=== PATIENT | female | born 1945 | race Caucasian/White ===

== ENCOUNTER 2019-03-07 10:36 | Day surgery (SDC) | payer MEDICARE, OTHER ==
[~2019-03-07] VITALS: Ht 167.6 cm; Wt 69.7 kg
[~2019-03-07 10:36] MED LIST: ALPR.5 PO; Bactrim Ds Tab1 EACH PO; ESCI20 PO; HYDACE5 PO; Keflex500 MG PO; OXYACE5T PO; TRAZ100 PO
[2019-03-07] MEDS ORDERED: Zantac150 MG (12:17)
--- NOTE | 2019-03-07 13:24 | NUR ---
03/07/19 1324 Alka Welch PT. WITH SATS DOWN TO 87% ON 3L/NC, PT. COUGHING, O2 UP TO 5L/NC WITH SATS UP TO 98%. JAW THRUST/CHIN LIFT PERFORMED.
== END 2019-03-07 13:35 | disposition home or self-care (01) ==
LOC: ORSCSDS 10:36
DX: K30 Functional dyspepsia (principal); K21.0 Gastro-esophageal reflux disease with esophagitis; R11.0 Nausea; K29.80 Duodenitis without bleeding; I10 Essential (primary) hypertension; Z79.899 Other long term (current) drug therapy
CPT/HCPCS: 88305; 88342; J2250; J2704; J7120

== ENCOUNTER → 2020-04-04 | Outpatient (CLI) | payer MEDICARE ==
[~2020-04-04] MED LIST changes: +Zantac150 MG
== END | disposition home or self-care (01) ==
LOC: PLD 08:35 → LAB SHORT 08:35
DX: D17.21 Benign lipomatous neoplasm of skin and subcutaneous tissue of right arm (principal)
CPT/HCPCS: 88304

== ENCOUNTER → 2020-04-17 | Outpatient (CLI) | payer MEDICARE | LOC: LAB 16:12 → LAB SHORT 16:12 | DX: L08.0 Pyoderma (principal) | CPT/HCPCS: 87070; 87077; 87147; 87186; 87205 ==

== ENCOUNTER 2024-03-08 10:33 | Day surgery (SDC) | payer MEDICARE, OTHER ==
[~2024-03-08] VITALS: Ht 167.6 cm; Wt 68.4 kg
[~2024-03-08 10:33] MED LIST changes: +Balanced Salt Epinephrine Irrigation Solution 500 mL IR SCH; +Lidocaine HCl/Pf 1% 5 ML VIAL XX SCH; +Moxifloxacin HCL 0.5 MG/0.1 ML 0.4MLSYR RIGHTEYE SCH; +NS 500 ML IV ONE; +PHENYLEPHRINE\\TROPICAMIDE\\TETRACAINE OPHTHALMIC DILATING SOLN RIGHTEYE PRN; +Povidone-Iodine 450 DROP/30 ML Solution RIGHTEYE SCH
[2024-03-08] MEDS ORDERED: NS 500 ML IV ONE (11:26)
--- NOTE | 2024-03-08 11:26 | NUR ---
03/08/24 1126 Patti Abraham AT [address] [id number]
[2024-03-08] MEDS ORDERED: Midazolam HCl 1MG / ML 2ML Vial ONE (11:34)
[2024-03-08] MEDS ORDERED: FentaNYL Citrate 50 MCG/ML 2 ML Injection ONE (11:34)
[2024-03-08] MEDS ORDERED: IBUP800 PO (11:34)
[2024-03-08 13:06] VITALS: BP 164/90
== END 2024-03-08 13:21 | disposition home or self-care (01) ==
LOC: ORSCSDS 10:33
PROVIDERS: Student in an Organized Health Care Education/Training Program
PROC: 08RJ3JZ Replacement of Right Lens with Synthetic Substitute, Percutaneous Approach (ICD-10-PCS; principal; 2024-03-08 12:30)
DX: H25.813 Combined forms of age-related cataract, bilateral (principal); I10 Essential (primary) hypertension; K21.9 Gastro-esophageal reflux disease without esophagitis
CPT/HCPCS: J2250; J3010; J7040; V2632

== ENCOUNTER 2024-03-22 10:46 | Day surgery (SDC) | payer MEDICARE, OTHER ==
[~2024-03-22] VITALS: Ht 167.6 cm; Wt 68.5 kg
[~2024-03-22 10:46] MED LIST changes: +IBUP800 PO; +Moxifloxacin HCL 0.5 MG/0.1 ML 0.4MLSYR LEFTEYE SCH; -Moxifloxacin HCL 0.5 MG/0.1 ML 0.4MLSYR RIGHTEYE SCH; +PHENYLEPHRINE\\TROPICAMIDE\\TETRACAINE OPHTHALMIC DILATING SOLN LEFTEYE PRN; -PHENYLEPHRINE\\TROPICAMIDE\\TETRACAINE OPHTHALMIC DILATING SOLN RIGHTEYE PRN; +Povidone-Iodine 450 DROP/30 ML Solution LEFTEYE SCH; -Povidone-Iodine 450 DROP/30 ML Solution RIGHTEYE SCH
[2024-03-22] MEDS ORDERED: NS 1,000 ML IV ONE (12:00)
[2024-03-22] MEDS ORDERED: Midazolam HCl 1MG / ML 2ML Vial ONE (12:17)
[2024-03-22] MEDS ORDERED: Tetracaine HCl 0.5% Opth Soln 15 ml LEFTEYE ONE (12:21)
[2024-03-22] MEDS ORDERED: FentaNYL Citrate 50 MCG/ML 2 ML Injection ONE (12:24)
[2024-03-22 13:39] VITALS: BP 158/89
--- NOTE | 2024-03-22 13:39 | NUR ---
03/22/24 1339 Zacarias Machado PT ADVISED TO MONITOR B/P AT HOME AND FOLLOW UP WITH PCP IF NEEDED.
== END 2024-03-22 13:02 | disposition home or self-care (01) ==
LOC: ORSCSDS 10:46
PROVIDERS: Student in an Organized Health Care Education/Training Program
PROC: 08RK3JZ Replacement of Left Lens with Synthetic Substitute, Percutaneous Approach (ICD-10-PCS; principal; 2024-03-22 12:30)
DX: H25.812 Combined forms of age-related cataract, left eye (principal); Z96.1 Presence of intraocular lens; I10 Essential (primary) hypertension; K21.9 Gastro-esophageal reflux disease without esophagitis; E78.5 Hyperlipidemia, unspecified
CPT/HCPCS: J2250; J3010; J7040; V2632